=== PATIENT | male | born 1980 | race Asian ===

== ENCOUNTER 2017-09-22 16:56 | Emergency (ER) | payer OTHER, SELFPAY ==
[2017-09-22 17:13] VITALS: BP 183/93
--- NOTE | 2017-09-22 17:42 | EDM.PDOC ---
ED HPI GENERAL MEDICAL PROBLEM - General Chief Complaint: General Stated Complaint: FEVER Time Seen by Provider: 09/22/17 17:30 Source of Information: Reports: Patient History Limitations: Reports: No Limitations - History of Present Illness INITIAL COMMENTS - FREE TEXT/NARRATIVE: 37-year-old male who has been ill for the past 4 days. Started with generalized body aches, a cough, and a persistent sore throat. No significant nasal congestion, intermittent headaches. He's also had a persistent waxing and waning fever. No shortness of breath, no nausea or vomiting. He does have diarrhea but that is a chronic problem. No rashes. He got an influenza shot and would like to get a refund. Onset: Gradual (over the past 4 days) Duration: Day(s): (4 days) Location: Reports: Generalized Severity: Moderate Associated Symptoms: Reports: Cough, Fever/Chills, Headaches, Weakness, Other ( Body aches) Generalized Pain Score (Numeric/FACES): 8 - Related Data Allergies Allergy/AdvReac Type Severity Reaction Status Date / Time Penicillins Allergy Mild Hives Verified 02/08/16 10:00 lisinopril AdvReac Severe Cough Verified 08/29/16 16:16 metformin AdvReac Mild Diarrhea Verified 08/29/16 16:16 Home Meds: Home Meds Sertraline [Zoloft] 200 mg PO DAILY 08/06/13 [History] Aspirin [Adult Low Dose Aspirin EC] 81 mg PO DAILY 11/08/15 [History] Pantoprazole Sodium [Protonix] 40 mg PO DAILY 11/08/15 [History] Acetaminophen [Tylenol JrHattie Duron] 640 mg PO Q4H PRN #100 tab.dis 09/04/16 [ Rx] Cyanocobalamin (Vitamin B-12) [Vitamin B-12] 1,000 mcg SL ACBREAKFAST #100 tab.subl 09/04/16 [Rx] Multivitamins [Childrens Chewable Vitamin] 1 each PO BID #100 tab.chew 09/04/16 [Rx] Cholecalciferol (Vitamin D3) [Vitamin D3] 5,000 unit PO DAILY 09/22/17 [History] Magnesium Oxide [Magnesium] 500 mg PO DAILY 09/22/17 [History] Vitamin B Complex [B Complex] 1 each PO DAILY 09/22/17 [History] Past Medical History HEENT History: Reports: Impaired Vision, Other (See Below) Other HEENT History: wears glasses; macular edema Cardiovascular History: Reports: High Cholesterol, Hypertension Respiratory History: Reports: Bronchitis, Recurrent Gastrointestinal History: Reports: Chronic Constipation, Irritable Bowel Syndrome Genitourinary History: Reports: Renal Disease, UTI, Recurrent Neurological History: Reports: Neuropathy, Diabetic Psychiatric History: Reports: Depression Endocrine/Metabolic History: Reports: Diabetes, Type II, Obesity/BMI 30+ - Infectious Disease History Infectious Disease History: Reports: Chicken Pox - Past Surgical History HEENT Surgical History: Reports: Oral Surgery GI Surgical History: Reports: EGD, Other (See Below) Other GI Surgeries/Procedures: gastrectomy Sep 01, 2016 Social & Family History - Family History Family Medical History: Unobtainable - Tobacco Use Smoking Status *Q: Never Smoker Years of Tobacco use: 3 Used Tobacco, but Quit: Yes Month Tobacco Last Used: Second Hand Smoke Exposure: No - Caffeine Use Caffeine Use: Reports: Coffee, Tea - Alcohol Use Days Per Week of Alcohol Use: 0 - Recreational Drug Use Recreational Drug Use: No ED ROS GENERAL - Review of Systems Review Of Systems: See Below Constitutional: Reports: Fever, Chills, Malaise, Weakness HEENT: Reports: Throat Pain Respiratory: Reports: Cough, Sputum. Denies: Shortness of Breath Cardiovascular: Denies: Chest Pain GI/Abdominal: Reports: Diarrhea (Chronic, unchanged). Denies: Abdominal Pain, Nausea, Vomiting : Reports: No Symptoms Skin: Reports: No Symptoms Neurological: Reports: Headache, Weakness Psychiatric: Reports: No Symptoms ED EXAM, GENERAL - Physical Exam Exam: See Below Exam Limited By: No Limitations General Appearance: Alert, No Apparent Distress Eye Exam: Bilateral Eye: Normal Inspection (no jaundice) Ears: Normal TMs Throat/Mouth: Other (Mild pharyngeal erythema, no exudate) Neck: No: Lymphadenopathy (R), Lymphadenopathy (L) Respiratory/Chest: No Respiratory Distress, Lungs Clear Cardiovascular: Regular Rate, Rhythm GI/Abdominal: Non-Tender Extremities: No: Pedal Edema Neurological: Alert, Oriented Psychiatric: Normal Affect, Normal Mood Skin Exam: Warm, Dry Course - Vital Signs Last Recorded V/S: Last Vital Signs Temp 100.6 F 09/22/17 17:18 Pulse 96 09/22/17 17:18 Resp 16 09/22/17 17:18 BP 183/93 H 09/22/17 17:18 Pulse Ox 97 09/22/17 17:18 - Re-Assessments/Exams Free Text/Narrative Re-Assessment/Exam: 09/22/17 17:43 Influenza antigens were obtained, a rapid strep was obtained, and the patient was sent for a two-view chest x-ray. 09/22/17 18:06 Chest x-ray shows just slight perihilar fullness typical of a viral bronchitis. Strep is negative. Influenza is positive for influenza B. Patient has past any benefits of Tamiflu. Encouraged him to continue with cold medications, Tylenol, and 220 mg of Aleve 3 times daily. I will write him a note for work for the next 2-3 days. He can return anytime if worsening or concerns. Departure - Departure Time of Disposition: 18:27 Disposition: Home, Self-Care 01 Condition: Good Clinical Impression: Influenza B - Discharge Information Instructions: Influenza, Adult, [id number] Referrals: Teresa Chavis MD [Primary Care Provider] - Forms: ED Department Discharge Care Plan Goals: Rest, lots of fluids, and continue with your cold medicines as needed. 220 mg of [id number] naproxen, Aleve, 3 times a day. Increase activity as tolerated and return at any time if worsening such as difficulty breathing.
--- NOTE | 2017-09-23 08:39 | CR ---
CHEST: 2 view CLINICAL HISTORY:Shortness of breath COMPARISON:2014 FINDINGS: Pulmonary vascularity appear normal. No infiltrate effusion or pneumothorax seen . IMPRESSION: No acute cardiopulmonary process or significant change from prior study
== END 2017-09-22 18:27 | disposition home or self-care (01) ==
LOC: JP.ED 16:56
DX: J10.1 Influenza due to other identified influenza virus with other respiratory manifestations (principal); E78.00 Pure hypercholesterolemia, unspecified; I10 Essential (primary) hypertension; E11.40 Type 2 diabetes mellitus with diabetic neuropathy, unspecified; E11.311 Type 2 diabetes mellitus with unspecified diabetic retinopathy with macular edema; F32.9 Major depressive disorder, single episode, unspecified; K59.00 Constipation, unspecified; Z88.8 Allergy status to other drugs, medicaments and biological substances; Z88.0 Allergy status to penicillin; Z87.440 Personal history of urinary (tract) infections; Z79.82 Long term (current) use of aspirin; Z79.899 Other long term (current) drug therapy
CPT/HCPCS: 71046; 71046-26; 87081; 87430; 87804; 99284

== ENCOUNTER 2019-02-08 21:06 | Emergency (ER) | payer BC, OTHER ==
[2019-02-08] MEDS ORDERED: Ketorolac 60 MG/2 ML SDV IM ONE (22:21)
[2019-02-08 22:23] VITALS: BP 178/94; PULSE 83
--- NOTE | 2019-02-08 22:23 | EDM.PDOC ---
ED HPI GENERAL MEDICAL PROBLEM - General Chief Complaint: Flank Pain Stated Complaint: RIB PAIN RIGHT SIDE Time Seen by Provider: 02/08/19 22:17 Source of Information: Reports: Patient, RN Notes Reviewed History Limitations: Reports: No Limitations - History of Present Illness INITIAL COMMENTS - FREE TEXT/NARRATIVE: 38-year-old gentleman presents to the emergency department today with sudden onset of right sided chest pain, he injured himself when he was trying to reach his cat underneath his bed twisted wrong and heard a snap sudden onset of pain right side difficult for him to take right rib pain Pain Score (Numeric/FACES): 3 - Related Data Allergies Allergy/AdvReac Type Severity Reaction Status Date / Time Penicillins Allergy Mild Hives Verified 02/08/16 10:00 lisinopril AdvReac Severe Cough Verified 08/29/16 16:16 metformin AdvReac Mild Diarrhea Verified 08/29/16 16:16 Home Meds: Home Meds Sertraline [Zoloft] 200 mg PO DAILY 08/06/13 [History] Pantoprazole Sodium [Protonix] 40 mg PO DAILY 11/08/15 [History] Acetaminophen [Tylenol Jr. Meltaways] 640 mg PO Q4H PRN #100 tab.dis 09/04/16 [ Rx] Magnesium Oxide [Magnesium] 500 mg PO DAILY 09/22/17 [History] Past Medical History HEENT History: Reports: Impaired Vision, Other (See Below) Other HEENT History: wears glasses; macular edema Cardiovascular History: Reports: High Cholesterol, Hypertension Respiratory History: Reports: Bronchitis, Recurrent Gastrointestinal History: Reports: Chronic Constipation, Irritable Bowel Syndrome Genitourinary History: Reports: Renal Disease, UTI, Recurrent Neurological History: Reports: Neuropathy, Diabetic Psychiatric History: Reports: Depression Endocrine/Metabolic History: Reports: Diabetes, Type II, Obesity/BMI 30+ - Infectious Disease History Infectious Disease History: Reports: Chicken Pox - Past Surgical History HEENT Surgical History: Reports: Oral Surgery GI Surgical History: Reports: EGD, Other (See Below) Other GI Surgeries/Procedures: gastrectomy Sep 01, 2016. GRISEL Social & Family History - Family History Family Medical History: Unobtainable - Tobacco Use Smoking Status *Q: Former Smoker Years of Tobacco use: 10 Used Tobacco, but Quit: Yes Month/Year Tobacco Last Used: 07/2008 - Caffeine Use Caffeine Use: Reports: Coffee, Tea Caffeine Use Comment: 2-5 cups of coffee a day; iced tea occasionally - Recreational Drug Use Recreational Drug Use: No ED ROS GENERAL - Review of Systems Review Of Systems: See Below Constitutional: Reports: No Symptoms HEENT: Reports: No Symptoms Respiratory: Reports: Shortness of Breath Cardiovascular: Reports: Chest Pain GI/Abdominal: Reports: No Symptoms ED EXAM, GENERAL - Physical Exam Exam: See Below Exam Limited By: No Limitations General Appearance: Alert, Mild Distress Respiratory/Chest: No Respiratory Distress, Lungs Clear, Normal Breath Sounds, No Accessory Muscle Use, Other (Tender along the mid axillary line right side) Cardiovascular: Regular Rate, Rhythm, No Murmur GI/Abdominal: Soft, Non-Tender Course - Vital Signs Last Recorded V/S: Last Vital Signs Temp 97.2 F 02/08/19 21:44 Pulse 83 02/08/19 22:14 Resp 13 02/08/19 21:44 BP 178/94 H 02/08/19 22:14 Pulse Ox 96 02/08/19 22:14 - Orders/Labs/Meds Meds: Medications Discontinued Medications Generic Name Dose Route Start Last Admin Trade Name Ronan PRN Reason Stop Dose Admin Ketorolac Tromethamine 60 mg 02/08/19 22:21 02/08/19 22:29 Toradol IM 02/08/19 22:22 60 mg ONETIME ONE Administration Departure - Departure Time of Disposition: 23:29 Disposition: Home, Self-Care 01 Condition: Fair Clinical Impression: Chest wall pain - Discharge Information Referrals: Teresa Chavis MD [Primary Care Provider] - Forms: ED Department Discharge Additional Instructions: Use ibuprofen as needed for baseline pain control, use the hydrocodone for breakthrough pain Please followup with your primary care provider in 3-5 days if not better, please call return to the emergency department with worsening of symptoms. - Assessment/Plan Plan: Assessment Acuity = acute Site and laterality = chest wall pain Etiology = secondary to twisting injury Manifestations = none Location of injury = Home Lab values =chest x-ray shows no acute process Plan Good relief with Toradol, prescription written for hydrocodone 5/325 one tab by mouth 3 times a day when necessary total #6 provided for pain control primary care 3-5 days if not better This note was dictated using [employer] voice recognition software please call with any questions on syntax or grammar.
--- NOTE | 2019-02-08 22:57 | CRLCR ---
INDICATION: Right-sided pain. COMPARISON: 09/22/2017 chest radiographs. FINDINGS/IMPRESSION: Persistent or recurrent stranding in the right lower lobe, possibly representing pneumonia. Short-term followup radiographs to document clearing are recommended and if the finding persists consider chest CT. Lungs otherwise clear. No pleural effusions. Normal heart size. Unremarkable bony structures. Dictated by Maxim Torres MD @ 02/08/2019 10:55:39 PM Dictated by: Maxim Torres MD @ 02/08/2019 22:56:42 (Electronically Signed)
== END 2019-02-08 23:30 | disposition home or self-care (01) ==
LOC: JP.ED 21:06
DX: R07.89 Other chest pain (principal); I10 Essential (primary) hypertension; E66.9 Obesity, unspecified; E11.40 Type 2 diabetes mellitus with diabetic neuropathy, unspecified; F32.9 Major depressive disorder, single episode, unspecified; Z98.890 Other specified postprocedural states; Z79.899 Other long term (current) drug therapy; Z87.891 Personal history of nicotine dependence; Z88.0 Allergy status to penicillin; Z88.8 Allergy status to other drugs, medicaments and biological substances; X50.1XXA Overexertion from prolonged static or awkward postures, initial encounter
CPT/HCPCS: 71046; 96372; 99283; J1885

== ENCOUNTER 2019-07-22 16:53 | Emergency (ER) | payer BC ==
[2019-07-22 17:18] VITALS: BP 101/56; PULSE 94
--- NOTE | 2019-07-22 17:54 | EDM.PDOC ---
ED HPI GENERAL MEDICAL PROBLEM - General Chief Complaint: Respiratory Problem Stated Complaint: FEVER,COUGH Time Seen by Provider: 07/22/19 17:50 Source of Information: Reports: Patient, Old Records History Limitations: Reports: No Limitations - History of Present Illness INITIAL COMMENTS - FREE TEXT/NARRATIVE: 39 yo male here with fever, congestion, body aches for 1.5 days. Took Nyquil and his fever came down a little. Did have a flu shot. Has not been to the clinic. Onset: Gradual Onset Date: 07/21/19 Duration: Day(s): (1.5), Constant Location: Reports: Generalized Quality: Reports: Burning (throat with coughing) Severity: Moderate Improves with: Reports: Medication Worsens with: Reports: Other (cough/swallow) Context: Reports: Other (see hPI) Associated Symptoms: Reports: Cough, Fever/Chills. 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 Meltaways] 640 mg PO Q4H PRN #100 tab.dis 09/04/16 [ Rx] Magnesium Oxide [Magnesium] 500 mg PO DAILY 09/22/17 [History] Azithromycin [Zithromax] 250 mg PO DAILY #6 tab 07/22/19 [Rx] Past Medical History HEENT History: Reports: Impaired Vision, Other (See Below) Other HEENT History: wears glasses; macular edema Cardiovascular History: Reports: High Cholesterol, Hypertension Respiratory History: Reports: Bronchitis, Recurrent Gastrointestinal History: Reports: Chronic Constipation, Irritable Bowel Syndrome Genitourinary History: Reports: Renal Disease, UTI, Recurrent Neurological History: Reports: Neuropathy, Diabetic Psychiatric History: Reports: Depression Endocrine/Metabolic History: Reports: Diabetes, Type II, Obesity/BMI 30+ - Infectious Disease History Infectious Disease History: Reports: Chicken Pox - Past Surgical History HEENT Surgical History: Reports: Oral Surgery GI Surgical History: Reports: EGD, Other (See Below) Other GI Surgeries/Procedures: gastrectomy Sep 01, 2016. NITHINY Musculoskeletal Surgical History: Reports: Other (See Below) Social & Family History - Family History Family Medical History: Unobtainable - Tobacco Use Smoking Status *Q: Never Smoker - Caffeine Use Caffeine Use: Reports: Coffee Caffeine Use Comment: 2-5 cups of coffee a day; iced tea occasionally - Recreational Drug Use Recreational Drug Use: No ED ROS GENERAL - Review of Systems Review Of Systems: See Below Constitutional: Reports: Fever, Chills, Malaise HEENT: Reports: Throat Pain, Other (nasal congestion) Respiratory: Reports: Cough. Denies: Shortness of Breath, Wheezing, Pleuritic Chest Pain, Sputum Cardiovascular: Reports: No Symptoms GI/Abdominal: Reports: No Symptoms : Reports: No Symptoms Musculoskeletal: Reports: No Symptoms Skin: Reports: No Symptoms Neurological: Reports: No Symptoms Psychiatric: Reports: No Symptoms ED EXAM, GENERAL - Physical Exam Exam: See Below Exam Limited By: No Limitations General Appearance: Alert, WD/WN, No Apparent Distress Eye Exam: Bilateral Eye: Normal Inspection Ears: Normal External Exam, Normal Canal, Hearing Grossly Normal, Normal TMs Ear Exam: Bilateral Ear: Auricle Normal, Canal Normal, TM normal Nose: Normal Inspection, No Blood Throat/Mouth: Normal Inspection, Normal Lips, Normal Oropharynx, Normal Voice, No Airway Compromise Head: Atraumatic, Normocephalic Neck: Normal Inspection Respiratory/Chest: No Respiratory Distress, Lungs Clear, Normal Breath Sounds, No Accessory Muscle Use Cardiovascular: Regular Rate, Rhythm, No Edema, Tachycardia Back Exam: Normal Inspection Extremities: Normal Inspection, Normal Range of Motion, Non-Tender, No Pedal Edema Neurological: Alert, Oriented, CN II-XII Intact, Normal Cognition, Normal Gait Psychiatric: Normal Affect, Normal Mood Skin Exam: Warm, Dry, Intact, Normal Color, No Rash Course - Vital Signs Last Recorded V/S: Last Vital Signs Temp 38.2 C H 07/22/19 17:45 Pulse 94 07/22/19 17:45 Resp 14 07/22/19 17:45 BP 101/56 L 07/22/19 17:45 Pulse Ox 97 07/22/19 17:45 Departure - Departure Time of Disposition: 18:05 Disposition: Home, Self-Care 01 Condition: Fair Clinical Impression: Viral bronchitis - Discharge Information *PRESCRIPTION DRUG MONITORING PROGRAM REVIEWED*: No *COPY OF PRESCRIPTION DRUG MONITORING REPORT IN PATIENT JANESSA: No Prescriptions: Azithromycin [Zithromax] 250 mg PO DAILY #6 tab Instructions: Acute Bronchitis, Adult, [id number] Referrals: Teresa Chavis MD [Primary Care Provider] - Forms: ED Department Discharge Additional Instructions: Use azithromycin as directed. Take Tylenol every 4 hrs. Drink ample fluids. Recheck with your doctor on Thursday. Return if worse. Sepsis Event Note - Evaluation Sepsis Screening Result: Possible Sepsis Risk - Focused Exam Vital Signs: Vital Signs Temp Pulse Resp BP Pulse Ox 07/22/19 17:45 38.2 C H 94 14 101/56 L 97 07/22/19 17:16 38.2 C H 94 14 101/56 L 97 Date Exam was Performed: 07/22/19 Time Exam was Performed: 18:05
== END 2019-07-22 18:57 | disposition home or self-care (01) ==
LOC: JP.ED 16:53
DX: J20.8 Acute bronchitis due to other specified organisms (principal); B97.89 Other viral agents as the cause of diseases classified elsewhere; I10 Essential (primary) hypertension; E11.40 Type 2 diabetes mellitus with diabetic neuropathy, unspecified; F32.9 Major depressive disorder, single episode, unspecified; E66.9 Obesity, unspecified; Z88.0 Allergy status to penicillin; Z88.8 Allergy status to other drugs, medicaments and biological substances; Z79.899 Other long term (current) drug therapy; Z98.890 Other specified postprocedural states
CPT/HCPCS: 36415; 85025; 87804; 87804-59; 99283

== ENCOUNTER 2019-12-15 08:41 | Emergency (ER) | payer BC ==
[2019-12-15 08:51] VITALS: BP 153/85; PULSE 83
--- NOTE | 2019-12-15 09:09 | EDM.PDOC ---
ED HPI GENERAL MEDICAL PROBLEM - General Chief Complaint: Fever Stated Complaint: FEVER, BODY ACHES/CHILLS Time Seen by Provider: 12/15/19 09:00 Source of Information: Reports: Patient History Limitations: Reports: No Limitations - History of Present Illness INITIAL COMMENTS - FREE TEXT/NARRATIVE: 39-year-old male arrived at work this morning with just mild generalized malaise , muscle aches, and low-grade fever of 99.3. His work sent him in to get a COVID test. No significant shortness of breath or cough. Onset: Unknown/Unsure (Seemed fine until this morning) Associated Symptoms: Reports: No Other Symptoms, Fever/Chills. Denies: Diaphoresis, Nausea/Vomiting, Shortness of Breath - Related Data Allergies Allergy/AdvReac Type Severity Reaction Status Date / Time Penicillins Allergy Mild Hives Verified 02/08/16 10:00 lisinopril AdvReac Severe Cough Verified 08/29/16 16:16 metformin AdvReac Mild Diarrhea Verified 08/29/16 16:16 Home Meds: Home Meds Sertraline [Zoloft] 200 mg PO DAILY 08/06/13 [History] Pantoprazole Sodium [Protonix] 40 mg PO DAILY 11/08/15 [History] Acetaminophen [Tylenol Jr. Meltaways] 640 mg PO Q4H PRN #100 tab.dis 09/04/16 [ Rx] Magnesium Oxide [Magnesium] 500 mg PO DAILY 09/22/17 [History] Ascorbic Acid [Vitamin C] 1,000 mg PO DAILY 12/15/19 [History] Cholecalciferol (Vitamin D3) [Vitamin D] 5,000 unit PO ASDIRECTED 12/15/19 [ History] Past Medical History HEENT History: Reports: Impaired Vision, Other (See Below) Other HEENT History: wears glasses; macular edema Cardiovascular History: Reports: High Cholesterol, Hypertension Respiratory History: Reports: Bronchitis, Recurrent Gastrointestinal History: Reports: Chronic Constipation, Irritable Bowel Syndrome Genitourinary History: Reports: Renal Disease, UTI, Recurrent Neurological History: Reports: Neuropathy, Diabetic Psychiatric History: Reports: Depression Endocrine/Metabolic History: Reports: Diabetes, Type II, Obesity/BMI 30+ - Infectious Disease History Infectious Disease History: Reports: Chicken Pox - Past Surgical History HEENT Surgical History: Reports: Oral Surgery GI Surgical History: Reports: EGD, Other (See Below) Other GI Surgeries/Procedures: gastrectomy Sep 01, 2016. RNNelli Musculoskeletal Surgical History: Reports: Other (See Below) Social & Family History - Family History Family Medical History: Unobtainable - Tobacco Use Smoking Status *Q: Unknown Ever Smoked - Caffeine Use Caffeine Use: Reports: Coffee Caffeine Use Comment: 2-5 cups of coffee a day; iced tea occasionally ED ROS GENERAL - Review of Systems Review Of Systems: See Below Constitutional: Reports: Fever, Chills, Malaise HEENT: Reports: No Symptoms Respiratory: Denies: Shortness of Breath Cardiovascular: Denies: Chest Pain GI/Abdominal: Reports: Nausea. Denies: Vomiting Musculoskeletal: Reports: Muscle Pain (Generalized muscle aches) Skin: Reports: Diaphoresis Neurological: Denies: Headache Psychiatric: Reports: No Symptoms ED EXAM, GENERAL - Physical Exam Exam: See Below Exam Limited By: No Limitations General Appearance: Alert, No Apparent Distress Head: Atraumatic Respiratory/Chest: No Respiratory Distress, Lungs Clear Cardiovascular: Regular Rate, Rhythm GI/Abdominal: Non-Tender Neurological: Alert, Oriented Psychiatric: Normal Affect, Normal Mood Skin Exam: Warm, Dry Course - Vital Signs Last Recorded V/S: Last Vital Signs Temp 99.1 F 12/15/19 08:49 Pulse 83 12/15/19 08:49 Resp 16 12/15/19 08:49 BP 153/85 H 12/15/19 08:49 Pulse Ox 97 12/15/19 08:49 - Re-Assessments/Exams Free Text/Narrative Re-Assessment/Exam: 12/15/19 09:09 I do think a COVID-19 test is reasonable. 12/15/19 09:28 After consultation with the clinic next door, the patient will be sent over for a COVID-19 test as the turnaround time is only 1 to 2 days. He would have went there initially if he would have knowing the difference. Departure - Departure Time of Disposition: 09:48 Disposition: Home, Self-Care 01 Clinical Impression: Malaise, Generalized muscle ache - Discharge Information Instructions: Weakness, [id number] Referrals: PCP,None [Primary Care Provider] - Forms: ED Department Discharge Care Plan Goals: Obtain test as discussed, rest the next 2 to 3 days while waiting results. Stay hydrated and return anytime if worsening or concerns such as difficulty breathing. Sepsis Event Note - Evaluation Sepsis Screening Result: No Definite Risk - Focused Exam Vital Signs: Vital Signs Temp Pulse Resp BP Pulse Ox 12/15/19 08:49 99.1 F 83 16 153/85 H 97 12/15/19 08:47 99.1 F 83 16 153/85 H 97 Date Exam was Performed: 12/15/19 Time Exam was Performed: 12:24
== END 2019-12-15 09:48 | disposition home or self-care (01) ==
LOC: JP.ED 08:41
DX: R53.81 Other malaise (principal); M79.10 Myalgia, unspecified site; E66.9 Obesity, unspecified; E78.00 Pure hypercholesterolemia, unspecified; E11.40 Type 2 diabetes mellitus with diabetic neuropathy, unspecified; F32.9 Major depressive disorder, single episode, unspecified; Z88.0 Allergy status to penicillin; Z88.8 Allergy status to other drugs, medicaments and biological substances; Z79.899 Other long term (current) drug therapy
CPT/HCPCS: 99283

== ENCOUNTER 2022-11-19 20:53 | Emergency (ER) | payer BC ==
[2022-11-19 22:56] VITALS: BP 179/95; PULSE 77
[2022-11-19] MEDS ORDERED: Magnesium Oxide 400 MG Tab PO ONE (23:00)
== END 2022-11-19 23:17 | disposition home or self-care (01) ==
LOC: JP.ED 20:53
DX: I95.1 Orthostatic hypotension (principal); D64.9 Anemia, unspecified; E83.42 Hypomagnesemia; I10 Essential (primary) hypertension; E11.40 Type 2 diabetes mellitus with diabetic neuropathy, unspecified; E66.9 Obesity, unspecified; Z68.28 Body mass index [BMI] 28.0-28.9, adult; Z88.0 Allergy status to penicillin; Z88.8 Allergy status to other drugs, medicaments and biological substances
CPT/HCPCS: 36415; 80048; 82607; 82728; 82746; 83735; 84439; 84443; 85025; 93005; 99284; A9270

== ENCOUNTER 2023-06-14 18:09 | Emergency (ER) | payer BC ==
[2023-06-14 19:04] LABS: BASOPHILS PERCENT AUTO 0.1 % (0.1-1.3); EOSINOPHILS ABSOLUTE AUTO 0.03 K/uL (0.00-0.40); EOSINOPHILS PERCENT AUTO 0.4 % (0.0-5.4); HEMATOCRIT 35.6 % (38.4-49.7); IMMATURE GRAN PERCENT AUTO 0.3 % (0.0-0.7); LYMPHOCYTES ABSOLUTE AUTO 0.27 K/uL (0.8-3.3); LYMPHOCYTES PERCENT AUTO 3.7 % (11.4-47.7); MEAN CORPUSCULAR HEMOGLOBIN 29.3 pg (31.6-35.5); MEAN CORPUSCULAR HGB CONC 33.7 g/dL (31.6-35.5); MEAN CORPUSCULAR VOLUME 86.8 fL (81.4-99.0); MONOCYTES PERCENT AUTO 4.1 % (3.3-12.6); NEUTROPHILS ABSOLUTE AUTO 6.68 K/uL (1.0-7.6); NEUTROPHILS PERCENT AUTO 91.4 % (40.0-78.1); PLATELET COUNT,PLT 98 K/uL (130-375); WHITE BLOOD CELL COUNT,WBC 7.3 K/uL (3.2-11.0)
[2023-06-14 19:05] LABS: BASOPHILS ABSOLUTE AUTO 0.01 K/uL (0.00-0.10); IMMATURE GRAN ABSOLUTE AUTO 0.02 K/uL (0.00-0.23)
[2023-06-14 19:18] LABS: STREP A BY PCR NOT DETECTED (NOT DETECT)
[2023-06-14 19:22] VITALS: BP 193/86; PULSE 109
[2023-06-14] MEDS: Ibuprofen 600 MG Tab PO ONE (19:26)
[2023-06-14 19:27] LABS: A/G RATIO 0.9 (1.2-2.2); ALANINE AMINOTRANSFERASE,ALT 11 U/L (12-78); ALBUMIN 3.6 g/dL (3.4-5.0); ALKALINE PHOSPHATASE 78 U/L (46-116); ASPARTATE AMNIOTRANSFERASE,AST 19 U/L (15-37); BILIRUBIN TOTAL 0.8 mg/dL (0.2-1.0); BLOOD UREA NITROGEN,BUN 23 mg/dL (7-18); CARBON DIOXIDE,CO2 23 mmol/L (21-32); CHLORIDE,CL 104 mmol/L (100-108); CREATININE 1.2 mg/dL (0.8-1.3); EST CRCL DRUG DOSING (CG) 95.84 mL/min; ESTIMATED GFR 77 mL/min (>60); GLUCOSE RANDOM 121 mg/dL (74-106); POTASSIUM,K 3.6 mmol/L (3.6-5.2); PROTEIN TOTAL,TP 7.5 g/dL (6.4-8.2); SODIUM,NA 138 mmol/L (140-148)
[2023-06-14 19:29] LABS: ANION GAP 14.6 mmol/L (5.0-14.0)
[2023-06-14 19:31] LABS: INFLUENZA A NAA NEGATIVE (NEGATIVE); INFLUENZA B NAA NEGATIVE (NEGATIVE); RESPIRATORY SYNCYTIAL VIR NAA NEGATIVE (NEGATIVE)
[2023-06-14 19:32] LABS: CORONAVIRUS COVID-19 NAA POSITIVE (NEGATIVE)
== END 2023-06-14 20:13 | disposition home or self-care (01) ==
LOC: JP.ED 18:09 → EEVIPCON 18:09 → JP.ED 20:13
DX: U07.1 COVID-19 (principal); I10 Essential (primary) hypertension; E78.00 Pure hypercholesterolemia, unspecified; K21.9 Gastro-esophageal reflux disease without esophagitis; E11.40 Type 2 diabetes mellitus with diabetic neuropathy, unspecified; E66.9 Obesity, unspecified; Z79.899 Other long term (current) drug therapy; Z88.0 Allergy status to penicillin; Z88.8 Allergy status to other drugs, medicaments and biological substances; Z68.28 Body mass index [BMI] 28.0-28.9, adult
CPT/HCPCS: 0241U; 36415; 71046; 80053; 83605; 85025; 87651; 99283; A9270

== ENCOUNTER 2025-04-18 00:52 | Emergency (ER) | payer BC ==
[2025-04-18 01:07] VITALS: BP 168/83; PULSE 94
== END 2025-04-18 02:21 | disposition home or self-care (01) ==
LOC: JP.ED 00:52
DX: J18.9 Pneumonia, unspecified organism (principal); I10 Essential (primary) hypertension; E11.9 Type 2 diabetes mellitus without complications; E66.9 Obesity, unspecified; K21.9 Gastro-esophageal reflux disease without esophagitis; Z79.899 Other long term (current) drug therapy; Z88.8 Allergy status to other drugs, medicaments and biological substances; Z88.0 Allergy status to penicillin; Z68.26 Body mass index [BMI] 26.0-26.9, adult
CPT/HCPCS: 71046; 99284; A9270